=== PATIENT | male | born 1995 | race Caucasian/White ===

== ENCOUNTER 2017-11-25 09:29 | Emergency (ER) | payer OTHER ==
[~2017-11-25] VITALS: Ht 185.4 cm; Wt 77.1 kg
[~2017-11-25 09:29] MED LIST: CEPH500 PO; HYDACE5 PO; HYDR1TAB94 PO; IBUP600 PO; IBUP800 PO
== END 2017-11-25 11:34 | disposition home or self-care (01) ==
LOC: ER 09:29
DX: S27.0XXD Traumatic pneumothorax, subsequent encounter (principal); S22.41XD Multiple fractures of ribs, right side, subsequent encounter for fracture with routine healing; W19.XXXD Unspecified fall, subsequent encounter; F17.200 Nicotine dependence, unspecified, uncomplicated
CPT/HCPCS: 71046; 99283-25